=== PATIENT | male | born 1945 | race Caucasian/White ===

== ENCOUNTER 2017-11-12 06:30 | Observation (INO) | payer OTHER ==
[2017-11-10 11:55] LABS: BASOPHILS % 0.5 % (0.0-1.0); EOSINOPHILS # (AUTO) 0.1 (0.0-0.4); EOSINOPHILS % 1.3 % (0.0-6.0); HEMATOCRIT 38.1 % (38.2-49.6); HEMOGLOBIN 12.8 g/dL (14.0-18.0); LYMPHOCYTES # (AUTO) 1.2 (1.0-3.2); LYMPHOCYTES % 21.1 % (18.0-39.1); MEAN CORPUSCULAR HEMOGLOBIN 31.2 pg (28-32); MEAN CORPUSCULAR HGB CONC 33.6 g/dL (31-35); MEAN CORPUSCULAR VOLUME 92.9 fL (81-99); MONOCYTES # (AUTO) 0.6 (0.2-0.8); MONOCYTES % 10.2 % (4.4-11.3); NEUTROPHILS # (AUTO) 3.7 (2.1-6.9); NEUTROPHILS % 66.5 % (38.7-80.0); PLATELET COUNT 144 x10e3/uL (140-360); RED CELL DISTRIBUTION WIDTH 12.8 % (11.7-14.4)
[2017-11-10 12:06] LABS: INR 1.13; PROTHROMBIN TIME 13.6 seconds (11.9-14.5)
[2017-11-10 12:07] LABS: PARTIAL THROMBOPLASTIN TIME 26.4 seconds (23.8-35.5)
[2017-11-10 12:13] LABS: ANION GAP 13.9 mmol/L (8-16); BLOOD UREA NITROGEN 13 mg/dL (7-26); BUN/CREATININE RATIO 14 (6-25); CALCIUM 10.2 mg/dL (8.4-10.2); CARBON DIOXIDE 27 mmol/L (22-29); CHLORIDE 105 mmol/L (98-107); CREATININE, SERUM 0.91 mg/dL (0.72-1.25); EST GLOMERULAR FILTRATION RATE > 60 ML/MIN (60-); GLUCOSE 99 mg/dL (74-118); POTASSIUM 4.9 mmol/L (3.5-5.1); SODIUM 141 mmol/L (136-145)
[~2017-11-12] VITALS: Ht 162.6 cm; Wt 109.9 kg
[~2017-11-12 06:30] MED LIST: ALLOPURINOL300 MG PO; AMLODIPINE BESY10 MG PO; ASPIR 8181 MG PO; CARVEDILOL6.25 MG PO; CLONIDINE HCL0.1 MG PO; DIPHENHYDRAMINE25 MG PO; DOXAZOSIN MESYLA8 MG PO; FERROUS SULFAT325 M1 PO; FUROSEMIDE40 MG PO; GLUCOSAMINE H1500 MG PO; MULTIVITAMINS1 EAC7 PO; NORCO 10-325 T1 EACH PO; OMEPRAZOLE20 MG PO; POTASSIUM CHLO20 ME1 PO; VITAMIN D PO; ZESTRIL20 MG PO
[2017-11-12] MEDS ORDERED: GELATIN SPONGE SZ 100 ONE (06:48)
[2017-11-12] MEDS ORDERED: BACITRACIN 50,000 UNIT VIAL ONE (06:48)
[2017-11-12] MEDS ORDERED: THROMBIN FOR SOLN 5,000 UNIT VIAL ONE (06:48)
[2017-11-12] MEDS ORDERED: ACETAMINOPHEN 1000 MG/100 ML 100 ML IV ONE (07:20)
[2017-11-12] MEDS ORDERED: LIDOCAINE HCL (LTA) 4 ML SOLN ONE (07:21)
[2017-11-12] MEDS ORDERED: CEFAZOLIN SOD 1 GM VIAL ONE (08:16)
[2017-11-12] MEDS ORDERED: SUGAMMADEX SODIUM 200 MG/2 ML VIAL IV ONE (10:16)
[2017-11-12] MEDS ORDERED: PROMETHAZINE HCL (IM) 25 MG/ML VIAL IM PRN (10:30)
[2017-11-12] MEDS ORDERED: CARISOPRODOL 350 MG TAB PO PRN (10:30)
[2017-11-12] MEDS ORDERED: ONDANSETRON HCL INJ 2 MG/ML VIAL IV PRN (10:30)
[2017-11-12] MEDS ORDERED: MAGNESIUM/ALUMINUM/SIMETHICONE 30 ML UDC PO PRN (10:30)
[2017-11-12] MEDS ORDERED: ACETAMINOPHEN 325 MG TAB PO PRN (10:30)
[2017-11-12] MEDS ORDERED: MORPHINE SULFATE 5 MG/ML VIAL IM PRN (10:30)
--- NOTE | 2017-11-12 11:00 | Operative Report ---
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 PROCEDURES 1. C3-C4 anterior cervical diskectomy and microsurgical osteophyte resection and allograft fusion, 14190. 2. Preparation of MTF cortical cancellous allograft, 69777. 3. C3-C4 anterior cervical plating with Synthes ZPN plate, [id number]. ANESTHESIA: General. INDICATIONS: The patient is a man who presents with C3-4 spondylosis, disk herniation, foraminal stenosis and spinal stenosis. He was taken to the operating room for C3-C4 anterior cervical decompression and fusion. PROCEDURE: After induction of general anesthesia, the patient was placed on the operating table in supine position. The right side of the neck was prepped and draped in sterile fashion. A transverse incision was created on the right side of the neck superimposed on the C3-C4 disk space as determined by fluoroscopy. The platysma was divided in line with the incision. A subplatysmal dissection was carried out. An avascular plane of dissection was developed medial to the sternocleidomastoid muscle and was followed medial to the carotid sheath to the anterior border of the cervical spine. The deep cervical fascia was opened. The esophagus was retracted to the left. The attachments of the longus coli muscles to the anterolateral aspects of the vertebral bodies of C3 and C4 were divided. The anterior longitudinal ligament was resected. Hachita posts were inserted into the C3 and C4. The Hachita distractor was used to distract the disk space. The anterior annulus of the disk was incised a #11 blade. The contents of the disk were thoroughly evacuated with angled curets and pituitary rongeurs. The posterior osteophytes were meticulously drilled with a 2-mm cutting bur on a high-speed drill until they were completely removed. The posterior annulus of the disk, herniated disk material and the posterior longitudinal ligament were resected layer by layer until the dura was fully exposed and decompressed. The medial aspects of the uncinate processes were resected bilaterally to further expose and decompress the origins of the corresponding nerve roots. After satisfactory decompression had been achieved, the endplates were prepared for fusion. The disk space was sized and found to be 8 mm in height. A piece of MTF cortical cancellous allograft was selected and soaked in saline and loaded onto a Synthes ZPN plate and inserted into the C3-C4 disk space under distraction and fluoroscopic guidance. The distraction was released, and the distraction posts were removed. The plate was screwed to the endplates of C3 and C4 with 2 pairs of 14-mm screws. All screws were locked. An excellent construct was obtained. The wound was copiously irrigated with Bacitracin solution. Meticulous hemostasis was secured. Retractor was removed. The platysma was closed with 3-0 Vicryl sutures. The skin was closed with 4-0 Monocryl sutures in subcuticular fashion. Steri-strips and dressing were applied. The patient was awakened, extubated, and taken to the postanesthesia care unit in stable condition. No intraoperative complications were encountered. Estimated blood loss was 10 mL. Job#: [id number]
[2017-11-12 12:07] VITALS: BP 143/67
[2017-11-12] MEDS: OXYCODONE/ACETAMINOPHEN 5-325 1 EACH TABLET PO PRN (12:27)
[2017-11-12] MEDS: LACTATED RINGER'S 1,000 ML IV SCH ×2 (12:27→23:45)
[2017-11-12 12:31] VITALS: BP 143/67
[2017-11-12] MEDS: CEFAZOLIN SOD 1 GM VIAL IV SCH ×2 (13:34→22:33)
[2017-11-12] MEDS: CEPACOL SORE THROAT LOZENGES PO PRN ×2 (13:35→19:21)
[2017-11-12] MEDS ORDERED: CEFAZOLIN SOD 1 GM/NS 50ML 50 ML IV SCH (14:00)
[2017-11-12] MEDS ORDERED: FENTANYL CITRATE/PF 100MCG/2 ML INJ ONE (14:10)
[2017-11-12] MEDS ORDERED: MIDAZOLAM HCL 2 MG/2 ML VIAL ONE (14:10)
[2017-11-12 14:19] LABS: FREE THYROXINE INDEX 2.046 (1.4-3.8); THYROID STIMULATING HORMONE 2.105 uIU/mL (0.350-4.940)
[2017-11-12] MEDS: HYDROCODONE/APAP 10MG-325MG TAB PO PRN (15:43)
[2017-11-12] MEDS ORDERED: BUPIVACAINE 0.5%/EPI 30 ML SDV INJ ONE (16:16)
[2017-11-12] MEDS: LISINOPRIL 20 MG TAB PO SCH (16:37)
[2017-11-12 16:39] VITALS: BP 128/66
[2017-11-12] MEDS ORDERED: CARVEDILOL 3.125 MG TAB PO SCH (17:00)
[2017-11-12] MEDS ORDERED: CLONIDINE HCL 0.1 MG TAB PO SCH (17:00)
[2017-11-12] MEDS ORDERED: ROCURONIUM BROMIDE 10 MG/ML 5ML VIAL ONE (17:36)
[2017-11-12] MEDS ORDERED: DEXAMETHASONE SOD PHOS INJ 4 MG/ML VIAL ONE (17:36)
[2017-11-12] MEDS ORDERED: GLYCOPYRROLATE INJ 1MG/ 5 ML SYR ONE (17:36)
[2017-11-12] MEDS ORDERED: LIDOCAINE HCL 2% LOCAL INJ 5 ML SDV VIAL INJ ONE (17:36)
[2017-11-12] MEDS ORDERED: ONDANSETRON HCL INJ 2 MG/ML VIAL ONE (17:36)
[2017-11-12] MEDS ORDERED: PROPOFOL IV EMULSION 10 MG/ML 20 ML VIAL ONE (17:36)
[2017-11-12] MEDS ORDERED: DESFLURANE 240 ML BTL INH ONE (17:36)
[2017-11-12] MEDS ORDERED: NEOSTIGMINE 5 MG/5ML SYR ONE (17:36)
[2017-11-12 20:00] VITALS: BP 143/72
[2017-11-12] MEDS ORDERED: DOXAZOSIN MESYLATE 2 MG TAB PO SCH (21:00)
[2017-11-12] MEDS ORDERED: ZOLPIDEM TARTRATE 5 MG TAB PO PRN (21:00)
[2017-11-12] MEDS ORDERED: DIPHENHYDRAMINE HCL 25 MG CAP PO SCH (21:00)
[2017-11-12] MEDS ORDERED: AMLODIPINE BESYLATE 10 MG TAB PO SCH (21:00)
[2017-11-13] VITALS: BP 104/59
[2017-11-13] MEDS: LACTATED RINGER'S 1,000 ML IV SCH ×2 (02:57→11:17)
[2017-11-13 04:55] VITALS: BP 143/70
[2017-11-13] MEDS: CEFAZOLIN SOD 1 GM VIAL IV SCH ×2 (06:36→14:00)
[2017-11-13 08:00] VITALS: BP 146/69
--- NOTE | 2017-11-13 08:04 | Diagnostic Imaging Report ---
PROCEDURE:X-RAY CERVICAL SPINE, TWO VIEWS COMPARISON:None. INDICATIONS:POST OP FOLLOW UP FINDINGS: The lateral view is visualized from the skull base to C7. Disc spacer with oblique fixating screws at C3-C4 is present. The vertebral bodies are well-aligned. There are no fractures, lytic or blastic lesions. Mild degenerative spurring is present from C4-C7. Disc space narrowing at C5-C6 is noted. The pre-vertebral soft tissues are normal. CONCLUSION: Status post surgical changes at C3-C4. Ge Lerner D.O. Dictated by: Ge Lerner D.O. on 11/13/2017 at 8:04 Electronically approved by: Ge Lerner D.O. on 11/13/2017 at 8:04
[2017-11-13] MEDS: HYDROCODONE/APAP 10MG-325MG TAB PO PRN (08:29)
[2017-11-13] MEDS: LISINOPRIL 20 MG TAB PO SCH ×2 (08:56→16:45)
[2017-11-13] MEDS ORDERED: ALLOPURINOL 300 MG TAB PO SCH (09:00)
[2017-11-13] MEDS ORDERED: MULTIVITAMINS/MINERALS TAB PO SCH (09:00)
[2017-11-13] MEDS ORDERED: GLUCOSAMINE 1500 MG PO SCH (09:00)
[2017-11-13] MEDS ORDERED: PANTOPRAZOLE SOD 40 MG TABEC PO SCH (09:00)
[2017-11-13] MEDS ORDERED: POTASSIUM CHLORIDE 20 MEQ TAB CR PO SCH (09:00)
[2017-11-13] MEDS ORDERED: FUROSEMIDE 40 MG TAB PO SCH (09:00)
[2017-11-13] MEDS ORDERED: FERROUS SULFATE 325 MG TAB PO SCH (09:00)
--- NOTE | 2017-11-13 09:16 | Consultation ---
DATE OF CONSULTATION: November 12, 2017 CARDIOLOGY CONSULTATION REASON FOR CONSULTATION: Bradycardia. REQUESTING PHYSICIAN: Dr. Dalal HPI: This is a pleasant, 72-year-old male that is status post C3-C4 repair. Postoperatively his heart rate dropped in the 40s, and cardiology was consulted. He has multiple medical problems including neck pain with bilateral shoulder pain and numbness and tingling sensation to the hands. He denies any chest pain, any palpitations, any dizziness, shortness of breath, diaphoresis or headache. He is on multiple blood pressure medications including Coreg. PAST MEDICAL HISTORY: Gout, BPH, hypertension, osteoarthritis, spondylosis with C3-C4 disk herniation. PAST SURGICAL HISTORY: Multiple lumbar fusions for lower back pain, TURP, tonsillectomy, cholecystectomy, left salivary gland surgery, laser and dilation of the prostate. FAMILY HISTORY: Positive for hypertension. SOCIAL HISTORY: No smoking. No drinking. Lives at home with the family. MEDICATIONS: He was on allopurinol, amlodipine, Coreg, clonidine, doxazosin, ferrous sulfate, Lasix, glucosamine, hydrocodone, lisinopril, multivitamin, omeprazole, and potassium chloride. ALLERGIES: HE IS NOT ALLERGIC TO ANY MEDICATION. REVIEW OF SYSTEMS: Negative, except those mentioned above. PHYSICAL EXAMINATION VITAL SIGNS: Temperature 97, heart rate 60, blood pressure 143/70, respirations 18, oxygen saturation 97% on room air. GENERAL: He is awake, alert and oriented times 3 with a neck collar in place. HEENT: Mucous membranes moist. NECK: Supple. Neck collar in place. LUNGS: Clear to auscultation. CARDIOVASCULAR: S1 and S2 present. ABDOMEN: Soft. NEUROLOGIC: Intact. He is able to move all extremities. EXTREMITIES: Bilateral lower extremities with ankle edema noted. LABS: Sodium 141, potassium 4.9, chloride 105, CO2 27, BUN 13, creatinine 0.91. Glucose 99. White blood cells 5.59, hemoglobin 12.8, hematocrit 38.1, platelets 144. PT 13.6, PTT 26.4, INR 1.13. IMPRESSION 1. Bradycardia. 2. Hypertension. 3. Gout. 4. BPH. 5. Osteoarthritis. 6. Chest pain C3-C4 repair. ASSESSMENT AND PLAN: Will go ahead and hold his Norvasc, and clonidine. Will get an echocardiogram to assess the LV and valve function. Will get 12-lead EKG. TSH was normal. Will check his magnesium. Further cardiac workup pending clinical course. Thank you for this consultation. Dictated by Nahun White NP. Job#: [id number] MARIA ISABEL
[2017-11-13 11:30] VITALS: BP 144/68
[2017-11-13] MEDS: OXYCODONE/ACETAMINOPHEN 5-325 1 EACH TABLET PO PRN (13:23)
[2017-11-13 16:00] VITALS: BP 150/70
== END 2017-11-13 18:01 | disposition home or self-care (01) ==
LOC: OR 06:30 → IMCU 11:20
PROVIDERS: ADMIT Neurological Surgery; ATTEND Neurological Surgery
DX: M50.01 Cervical disc disorder with myelopathy, high cervical region (principal); I10 Essential (primary) hypertension; R00.1 Bradycardia, unspecified; M10.9 Gout, unspecified; N40.0 Benign prostatic hyperplasia without lower urinary tract symptoms; M19.90 Unspecified osteoarthritis, unspecified site
CPT/HCPCS: 20931; 22551; 22845; 36415 ×3; 72040; 77003; 80048; 83735; 84436; 84443; 84479; 85025; 85610; 85730; 86850; 86900; 88304; 93005 ×2; 93306; C1713; G0378 ×2; J0690 ×2; J1100; J2001; J2250; J2405; J7120; J2270

== ENCOUNTER → 2018-02-25 | Day surgery (SDC) | payer OTHER ==
[2018-02-23 14:08] LABS: BASOPHILS % 0.5 % (0.0-1.0); EOSINOPHILS # (AUTO) 0.1 (0.0-0.4); EOSINOPHILS % 1.7 % (0.0-6.0); HEMATOCRIT 39.8 % (38.2-49.6); HEMOGLOBIN 13.3 g/dL (14.0-18.0); LYMPHOCYTES # (AUTO) 1.3 (1.0-3.2); LYMPHOCYTES % 21.1 % (18.0-39.1); MEAN CORPUSCULAR HEMOGLOBIN 30.9 pg (28-32); MEAN CORPUSCULAR HGB CONC 33.4 g/dL (31-35); MEAN CORPUSCULAR VOLUME 92.6 fL (81-99); MONOCYTES # (AUTO) 0.4 (0.2-0.8); MONOCYTES % 6.6 % (4.4-11.3); NEUTROPHILS # (AUTO) 4.1 (2.1-6.9); NEUTROPHILS % 69.8 % (38.7-80.0); PLATELET COUNT 153 x10e3/uL (140-360); RED CELL DISTRIBUTION WIDTH 12.9 % (11.7-14.4)
[2018-02-23 14:19] LABS: INR 1.06
[2018-02-23 14:20] LABS: PARTIAL THROMBOPLASTIN TIME 25.8 seconds (23.8-35.5)
[2018-02-23 14:23] LABS: ANION GAP 11.7 mmol/L (8-16); BLOOD UREA NITROGEN 11 mg/dL (7-26); BUN/CREATININE RATIO 13 (6-25); CALCIUM 10.1 mg/dL (8.4-10.2); CARBON DIOXIDE 26 mmol/L (22-29); CHLORIDE 106 mmol/L (98-107); CREATININE, SERUM 0.84 mg/dL (0.72-1.25); EST GLOMERULAR FILTRATION RATE > 60 ML/MIN (60-); GLUCOSE 153 mg/dL (74-118); POTASSIUM 3.7 mmol/L (3.5-5.1); SODIUM 140 mmol/L (136-145)
[~2018-02-25] MED LIST changes: +ACETAMINOPHEN 1000 MG/100 ML 100 ML IV ONE; +BUPIVACAINE HCL 0.5% 10ML MPF VIAL INJ ONE; +CEFAZOLIN SOD 1 GM VIAL ONE; +DEXAMETHASONE SOD PHOS INJ 4 MG/ML VIAL ONE; +KETOROLAC TROMETHAMINE 30 MG/ML VIAL ONE; +ONDANSETRON HCL INJ 2 MG/ML VIAL ONE; +PROPOFOL IV EMULSION 10 MG/ML 20 ML VIAL ONE; +SEVOFLURANE INHAL SOLN 250 ML PEN BTL ONE
--- NOTE | 2018-02-25 12:32 | Operative Report ---
DATE OF PROCEDURE: February 25, 2018 PREOPERATIVE DIAGNOSIS: Right carpal tunnel syndrome. POSTOPERATIVE DIAGNOSIS: Right carpal tunnel syndrome. PROCEDURE: Right carpal tunnel release. ANESTHESIA: General. INDICATIONS: Patient is a 72-year-old man who presents with severe right carpal tunnel syndrome and was taken to the operating room for a right carpal tunnel release. PROCEDURE: After the induction of general anesthesia, the patient was placed on the operating table in supine position. The right hand, wrist and forearm were prepped and draped circumferentially in sterile fashion. A small midline incision was created over the median palmar crease of the hand just distal to the distal flexor crease of the wrist. The subcutaneous fat was divided. The transverse carpal ligament was identified and incised with a number 15C blade until the underlying median nerve came into view. As the social media assistant retracted the skin edges, the transverse carpal ligament was divided proximally and distally until the full length of the ligament had been divided and the full length of the median nerve was exposed and decompressed within the carpal tunnel. More distally, the recurrent motor branch of the nerve was preserved within its fat pad. The wound was copiously irrigated with Bacitracin solution. Meticulous hemostasis was secured. The retractor was removed. The subcutaneous layer was closed with a 3-0 Vicryl suture. The skin was closed with a 3-0 nylon suture in a horizontal mattress fashion. A dressing was applied. The patient was awakened, extubated and taken to the postanesthesia care unit in stable condition. No intraoperative complications were encountered. Estimated blood loss was minimal. Job#: [id number] EV
== END | disposition home or self-care (01) ==
LOC: OR 06:21
PROVIDERS: ATTEND Neurological Surgery
DX: G56.01 Carpal tunnel syndrome, right upper limb (principal); I10 Essential (primary) hypertension; M51.36 Other intervertebral disc degeneration, lumbar region; F41.9 Anxiety disorder, unspecified; K21.9 Gastro-esophageal reflux disease without esophagitis; J61 Pneumoconiosis due to asbestos and other mineral fibers; Z87.891 Personal history of nicotine dependence
CPT/HCPCS: 36415; 64721; 80048; 85025; 85610; 85730; J0690; J1100; J1885; J2405